=== PATIENT | male | born 1975 | race Caucasian/White ===

== ENCOUNTER 2017-01-19 19:15 | Observation (INO) | payer MEDICAID, OTHER ==
[2017-01-19] MEDS ORDERED: Sodium Chloride 0.9% 1,000 ML IV ONE ×3 (19:40→21:57)
[2017-01-19] MEDS ORDERED: Sodium Chloride 0.9% 10 ML Syringe FLUSH PRN (19:40)
[2017-01-19] MEDS ORDERED: Ketorolac 30 MG/ML SDV IVPUSH ONE (19:40)
[2017-01-19] MEDS ORDERED: HYDROmorphone 0.5 MG/0.5 ML Syringe IVPUSH ONE (19:41)
--- NOTE | 2017-01-19 20:37 | EDM.PDOC ---
ED HPI GENERAL MEDICAL PROBLEM - General Chief Complaint: Genitourinary Problem Stated Complaint: KIDNEY STONE Time Seen by Provider: 01/19/17 19:45 Source of Information: Reports: Patient History Limitations: Reports: No Limitations - History of Present Illness INITIAL COMMENTS - FREE TEXT/NARRATIVE: Derrick is a 41 year old male who presents to the ED today with c/o left flank pain, nausea and vomiting. Patient has a hx of kidney stones, knows he had 2 in his left kidney from prior. Patient ran a marathon today just prior to onset of symptoms, he knows he has not had enough water. Patient denies any fever/chills. He denies any matt hematuria. Onset: Today, Sudden left flank/groin Pain Score (Numeric/FACES): 3 - Related Data Allergies Allergy/AdvReac Type Severity Reaction Status Date / Time Penicillins Allergy Hives Verified 01/19/17 19:57 Home Meds: Home Meds Tamsulosin [Flomax] 0.4 mg PO DAILY PRN 02/21/16 [History] Acetaminophen/oxyCODONE [Percocet 325-5 MG] 2 tab PO BID PRN 01/19/17 [History] Past Medical History - Past Health History Medical/Surgical History: Denies Medical/Surgical History Genitourinary History: Reports: Renal Calculus Other Genitourinary History: present kidney stone. Musculoskeletal History: Reports: Fracture - Infectious Disease History Infectious Disease History: Reports: Chicken Pox - Past Surgical History Male Surgical History: Reports: Other (See Below) Other Male Surgeries/Procedures: undescended testicle surgery Social & Family History - Family History Family Medical History: Noncontributory - Tobacco Use Smoking Status *Q: Never Smoker Second Hand Smoke Exposure: No - Caffeine Use Caffeine Use: Reports: None - Recreational Drug Use Recreational Drug Use: No ED ROS GENERAL - Review of Systems Review Of Systems: See Below Constitutional: Reports: No Symptoms HEENT: Reports: No Symptoms Respiratory: Reports: No Symptoms Cardiovascular: Reports: No Symptoms GI/Abdominal: Reports: Nausea, Vomiting : Reports: Flank Pain Skin: Reports: No Symptoms Neurological: Reports: No Symptoms Psychiatric: Reports: No Symptoms Hematologic/Lymphatic: Reports: No Symptoms Immunologic: Reports: No Symptoms ED EXAM, RENAL/ - Physical Exam Exam: See Below Exam Limited By: No Limitations General Appearance: Alert, WD/WN, Moderate Distress. No: No Apparent Distress Throat/Mouth: Normal Inspection, Normal Oropharynx Head: Atraumatic, Normocephalic Neck: Normal Inspection, Supple, Non-Tender Respiratory/Chest: No Respiratory Distress, Lungs Clear Cardiovascular: Normal Peripheral Pulses, Bradycardia. No: Regular Rate, Rhythm GI/Abdominal: Normal Bowel Sounds, Soft, Non-Tender, Other (left groin tender) (Male) Exam: Deferred Rectal (Males) Exam: Deferred Extremities: Normal Inspection Neurological: Alert, Oriented, CN II-XII Intact Skin Exam: Warm, Dry Course - Vital Signs Text/Narrative:: Derrick is an otherwise healthy 41 year old male who presents to the ED today with c/o sudden onset of left flank pain, hx of kidney stones. Patient just finished a triathalon today prior to onset of pain. He reports feeling fatigued and dehydrated. Patient denies any fever. He does endorse nausea and vomiting. Likely patient has ureteral stone. He does have hx of pyelonephritis associated with this in the past. PIV established. Patient was initially given one liter of NS and pain medication/zofran with vast improvement in his symptoms. Blood work and UA ordered, CBC returns with significant leukocytosis of 17.4 with a left shift, HGB is stable at 13.9. CMP returns with anion gap of 14.3, elevated creatinine of 1.7 and GFR of 44. Bilirubin also elevated at 1.8. Concerns with blood work for pyelonephritis vs. early rhabdomyolysis vs. significant dehydration. CK and CK-MB were evaluated, CK returns elevated at 346, CK-MB also elevated at 7.1, troponin was added on to blood work and is also mildly elevated at 0.062. Patient denies any chest pain, EKG obtained and shows peaked T waves in leads v3-v6 and is otherwise unremarkable, reviewed with Dr. Santamaria. I feel that patient's elevated CK-MB and troponin are the direct result of muscle strain from today's triatholon given his lack of other symptoms. Pericarditis could be considered in the differential with patient's EKG findings and lab work, however, again, patient is chest pain free and has no friction rub on exam. I discussed my findings with Tub Wash Operator, Dr. Brantley from [facility] who agreed with my assessment and feels patient is stable to stay here for observation and serial troponins. Patient will continue to by hydrated overnight. CT scan renal stone obtained and shows 3mm stone in bladder, likely recently passed with UVJ diliatation and mild left sided hydronephrosis. We at 2229 continue to await a UA sample, patient still unable to void at this time, likely secondary to significant volume depletion, he is now on his 3rd liter of NS at 500 ml/hr. I discussed my findings today and work up/test results with patient and his and plan of care. They are agreeable. I discussed patient with LUIS Mojica for observation admission, she has accepted patient and will write admission orders. 2229-Patient bladder scanned by RN, 105 ml's in bladder. If UA returns positive , IV antibiotics will be initiated at that time. Patient admitted in stable condition. Last Recorded V/S: Last Vital Signs Temp 36.6 C 01/19/17 20:03 Pulse 55 L 01/19/17 20:03 Resp 20 01/19/17 20:03 BP 147/90 H 01/19/17 20:03 Pulse Ox 99 01/19/17 20:03 - Orders/Labs/Meds Orders: Active Orders 24 hr Category Date Time Status EKG Documentation Completion [RC] ASDIRECTED Care 01/19/17 21:30 Active Peripheral IV Care [RC] . DIRECTED Care 01/19/17 19:40 Active Abdomen Pelvis wo Cont [CT] Stat Exams 01/19/17 19:41 Taken URINALYSIS W/MICROSCOPIC [UA W/MICROSCOPIC] [URIN] Stat Lab 01/19/17 21:16 Uncollected Sodium Chloride 0.9% [Normal Saline] 1,000 ml Med 01/19/17 21:57 Active IV .BOLUS Sodium Chloride 0.9% [Saline Flush] Med 01/19/17 19:40 Active 10 ml FLUSH ASDIRECTED PRN Peripheral IV Insertion Adult [OM.PC] Routine Oth 01/19/17 19:40 Ordered EKG 12 Lead [EK] Stat Ther 01/19/17 21:30 Ordered Medication Orders Sodium Chloride (Normal Saline) 1,000 mls @ 500 mls/hr IV .BOLUS ONE Stop: 01/19/17 23:56 Last Admin: 01/19/17 22:03 Dose: 500 mls/hr Sodium Chloride (Saline Flush) 10 ml FLUSH ASDIRECTED PRN PRN Reason: Keep Vein Open Last Admin: 01/19/17 19:54 Dose: 10 ml Labs: Laboratory Tests 01/19/17 01/19/17 01/19/17 Range/Units 19:49 19:49 20:27 WBC 17.4 H (4.5-11.0) K/uL RBC 4.40 (4.30-5.90) M/uL Hgb 13.9 (12.0-15.0) g/dL Hct 39.8 L (40.0-54.0) % MCV 91 (80-98) fL MCH 32 H (27-31) pg MCHC 35 (32-36) % Plt Count 226 (150-400) K/uL Neut % (Auto) 91 H (36-66) % Lymph % (Auto) 3 L (24-44) % [place] % (Auto) 6 (2-6) % Eos % (Auto) 0 L (2-4) % Baso % (Auto) 0 (0-1) % Sodium 137 L (140-148) mmol/L Potassium 4.3 (3.6-5.2) mmol/L Chloride 100 (100-108) mmol/L Carbon Dioxide 27 (21-32) mmol/L Anion Gap 14.3 H (5.0-14.0) mmol/L BUN 18 (7-18) mg/dL Creatinine 1.7 H (0.8-1.3) mg/dL Est Cr Clr Drug Dosing 56.74 mL/min Estimated GFR (MDRD) 44 L (>60) Glucose 121 H (74-106) mg/dL Calcium 9.0 (8.5-10.1) mg/dL Total Bilirubin 1.8 H (0.2-1.0) mg/dL AST 38 H (15-37) U/L ALT 32 (12-78) U/L Alkaline Phosphatase 59 (46-116) U/L Creatine Kinase 346 H (39-308) U/L CK-MB (CK-2) 7.1 H* (0-3.6) mg/mL Troponin I (0.000-0.056) ng/mL Total Protein 7.9 (6.4-8.2) g/dL Albumin 4.2 (3.4-5.0) g/dL Globulin 3.7 H (2.3-3.5) g/dL Albumin/Globulin Ratio 1.1 L (1.2-2.2) 01/19/17 Range/Units 20:59 WBC (4.5-11.0) K/uL RBC (4.30-5.90) M/uL Hgb (12.0-15.0) g/dL Hct (40.0-54.0) % MCV (80-98) fL MCH (27-31) pg MCHC (32-36) % Plt Count (150-400) K/uL Neut % (Auto) (36-66) % Lymph % (Auto) (24-44) % [place] % (Auto) (2-6) % Eos % (Auto) (2-4) % Baso % (Auto) (0-1) % Sodium (140-148) mmol/L Potassium (3.6-5.2) mmol/L Chloride (100-108) mmol/L Carbon Dioxide (21-32) mmol/L Anion Gap (5.0-14.0) mmol/L BUN (7-18) mg/dL Creatinine (0.8-1.3) mg/dL Est Cr Clr Drug Dosing mL/min Estimated GFR (MDRD) (>60) Glucose (74-106) mg/dL Calcium (8.5-10.1) mg/dL Total Bilirubin (0.2-1.0) mg/dL AST (15-37) U/L ALT (12-78) U/L Alkaline Phosphatase (46-116) U/L Creatine Kinase (39-308) U/L CK-MB (CK-2) (0-3.6) mg/mL Troponin I 0.062 H* (0.000-0.056) ng/mL Total Protein (6.4-8.2) g/dL Albumin (3.4-5.0) g/dL Globulin (2.3-3.5) g/dL Albumin/Globulin Ratio (1.2-2.2) Meds: Medications Generic Name Dose Route Start Last Admin Trade Name Freq PRN Reason Stop Dose Admin Sodium Chloride 1,000 mls @ 500 mls/hr 01/19/17 21:57 01/19/17 22:03 Normal Saline IV 07/08/17 23:56 500 mls/hr .BOLUS ONE Administration Sodium Chloride 10 ml 01/19/17 19:40 01/19/17 19:54 Saline Flush FLUSH 10 ml ASDIRECTED PRN Administration Keep Vein Open Discontinued Medications Generic Name Dose Route Start Last Admin Trade Name Freq PRN Reason Stop Dose Admin Hydromorphone HCl 1 mg 01/19/17 19:41 01/19/17 19:52 Dilaudid IVPUSH 01/19/17 19:42 1 mg ONETIME ONE Administration Sodium Chloride 1,000 mls @ 999 mls/hr 01/19/17 19:40 01/19/17 19:50 Normal Saline IV 01/19/17 20:40 999 mls/hr .BOLUS ONE Administration Sodium Chloride 1,000 mls @ 999 mls/hr 01/19/17 20:36 01/19/17 20:44 Normal Saline IV 01/19/17 21:36 999 mls/hr .BOLUS ONE Administration Ketorolac Tromethamine 30 mg 01/19/17 19:40 01/19/17 19:55 Toradol IVPUSH 01/19/17 19:41 30 mg ONETIME ONE Administration Departure - Departure Time of Disposition: 23:00 Disposition: Admitted As Inpatient 64 Condition: Good Clinical Impression: Elevated troponin I level, Elevated CK-MB level, Left ureteral stone, Dehydration, severe - Discharge Information Forms: ED Department Discharge - My Orders Last 24 Hours: My Active Orders 01/19/17 19:40 Peripheral IV Care [RC] . DIRECTED Sodium Chloride 0.9% [Saline Flush] 10 ml FLUSH ASDIRECTED PRN Peripheral IV Insertion Adult [OM.PC] Routine 01/19/17 19:41 Abdomen Pelvis wo Cont [CT] Stat 01/19/17 21:16 URINALYSIS W/MICROSCOPIC [UA W/MICROSCOPIC] [URIN] Stat 01/19/17 21:30 EKG Documentation Completion [RC] ASDIRECTED EKG 12 Lead [EK] Stat 01/19/17 21:57 Sodium Chloride 0.9% [Normal Saline] 1,000 ml IV .BOLUS - Assessment/Plan Last 24 Hours: My Active Orders 01/19/17 19:40 Peripheral IV Care [RC] . DIRECTED Sodium Chloride 0.9% [Saline Flush] 10 ml FLUSH ASDIRECTED PRN Peripheral IV Insertion Adult [OM.PC] Routine 01/19/17 19:41 Abdomen Pelvis wo Cont [CT] Stat 01/19/17 21:16 URINALYSIS W/MICROSCOPIC [UA W/MICROSCOPIC] [URIN] Stat 01/19/17 21:30 EKG Documentation Completion [RC] ASDIRECTED EKG 12 Lead [EK] Stat 01/19/17 21:57 Sodium Chloride 0.9% [Normal Saline] 1,000 ml IV .BOLUS
[2017-01-20] MEDS ORDERED: Morphine 2 MG/ML Syringe IVPUSH PRN (00:27)
[2017-01-20] MEDS ORDERED: Pantoprazole 40 MG Vial IV ONE (00:27)
[2017-01-20] MEDS ORDERED: Ibuprofen 600 MG Tab PO PRN (00:27)
[2017-01-20] MEDS ORDERED: Acetaminophen 325 MG Tab PO PRN (00:27)
[2017-01-20] MEDS ORDERED: Ondansetron 4 MG Tab.DIS PO PRN (00:27)
[2017-01-20] MEDS ORDERED: LORazepam 2 MG/ML MDV IV PRN (00:27)
[2017-01-20] MEDS ORDERED: Albuterol/Ipratropium 3.0-0.5 MG/3 ML Neb Soln NEB PRN (00:27)
[2017-01-20] MEDS ORDERED: Tamsulosin 0.4 MG Cap.ER PO PRN (00:27)
[2017-01-20] MEDS ORDERED: Docusate Sodium 100 MG Cap PO PRN (00:27)
[2017-01-20] MEDS ORDERED: Albuterol 0.083% 2.5 MG/3 ML Neb Soln NEB PRN (00:27)
[2017-01-20] MEDS ORDERED: oxyCODONE 5 MG Tab PO PRN (00:27)
[2017-01-20] MEDS ORDERED: Bisacodyl 5 MG Tab PO PRN (00:27)
[2017-01-20] MEDS ORDERED: Enoxaparin 30 MG/0.3 ML Syringe SUBCUT SCH ×2 (00:27→18:00)
--- NOTE | 2017-01-20 00:38 | PCM.HP ---
H&P History of Present Illness - General Date of Service: 01/19/17 Admit Problem/Dx: Admission Diagnosis/Problem Admission Diagnosis/Problem Dehydration Source of Information: Patient, Family () History Limitations: Reports: No Limitations - History of Present Illness Initial Comments - Free Text/Narative: ED HPI GENERAL MEDICAL PROBLEM - General Chief Complaint: Genitourinary Problem Stated Complaint: KIDNEY STONE Time Seen by Provider: 01/19/17 19:45 Source of Information: Reports: Patient History Limitations: Reports: No Limitations - History of Present Illness INITIAL COMMENTS - FREE TEXT/NARRATIVE: Derrick is a 41 year old male who presents to the ED today with c/o left flank pain, nausea and vomiting. Patient has a hx of kidney stones, knows he had 2 in his left kidney from prior. Patient ran a marathon today just prior to onset of symptoms, he knows he has not had enough water. Patient denies any fever/chills. He denies any matt hematuria. - Vital Signs Text/Narrative:: Derrick is an otherwise healthy 41 year old male who presents to the ED today with c/o sudden onset of left flank pain, hx of kidney stones. Patient just finished a triathalon today prior to onset of pain. He reports feeling fatigued and dehydrated. Patient denies any fever. He does endorse nausea and vomiting. Likely patient has ureteral stone. He does have hx of pyelonephritis associated with this in the past. PIV established. Patient was initially given one liter of NS and pain medication/zofran with vast improvement in his symptoms. Blood work and UA ordered, CBC returns with significant leukocytosis of 17.4 with a left shift, HGB is stable at 13.9. CMP returns with anion gap of 14.3, elevated creatinine of 1.7 and GFR of 44. Bilirubin also elevated at 1.8. Concerns with blood work for pyelonephritis vs. early rhabdomyolysis vs. significant dehydration. CK and CK-MB were evaluated, CK returns elevated at 346, CK-MB also elevated at 7.1, troponin was added on to blood work and is also mildly elevated at 0.062. Patient denies any chest pain, EKG obtained and shows peaked T waves in leads v3-v6 and is otherwise unremarkable, reviewed with Dr. Santamaria. I feel that patient's elevated CK-MB and troponin are the direct result of muscle strain from today's triatholon given his lack of other symptoms. Pericarditis could be considered in the differential with patient's EKG findings and lab work, however, again, patient is chest pain free and has no friction rub on exam. I discussed my findings with Environmental Field Office Manager, Dr. Brantley from [facility] who agreed with my assessment and feels patient is stable to stay here for observation and serial troponins. Patient will continue to be hydrated overnight. CT scan renal stone obtained and shows 3mm stone in bladder, likely recently passed with UVJ diliatation and mild left sided hydronephrosis. We at 2230 continue to await a UA sample, patient still unable to void at this time, likely secondary to significant volume depletion, he is now on his 3rd liter of NS at 500 ml/hr. I discussed my findings today and work up/test results with patient and his and plan of care. They are agreeable. I discussed patient with LUIS Mojica for observation admission, she has accepted patient and will write admission orders. 2229-Patient bladder scanned by RN, 105 ml's in bladder. If UA returns positive , IV antibiotics will be initiated at that time. Patient admitted in stable condition. Onset of Symptoms: Reports: Today Duration of Symptoms: Reports: Constant Location: Reports: Generalized Quality: Reports: Other (body aches, left flank pain) Improves with: Reports: Medication Worsens with: Reports: None Context: Reports: Exertion Associated Symptoms: Reports: Fever/Chills, Loss of Appetite, Malaise, Nausea/ Vomiting, Weakness left flank/groin Pain Score (Numeric/FACES): 3 - Related Data Allergies/Adverse Reactions: Allergies Allergy/AdvReac Type Severity Reaction Status Date / Time Penicillins Allergy Hives Verified 01/19/17 19:57 Home Medications: Home Meds Tamsulosin [Flomax] 0.4 mg PO DAILY PRN 02/21/16 [History] Acetaminophen/oxyCODONE [Percocet 325-5 MG] 2 tab PO BID PRN 01/19/17 [History] Past Medical History - Past Health History Medical/Surgical History: Denies Medical/Surgical History Genitourinary History: Reports: Renal Calculus Other Genitourinary History: present kidney stone. Musculoskeletal History: Reports: Fracture - Infectious Disease History Infectious Disease History: Reports: Chicken Pox - Past Surgical History Male Surgical History: Reports: Other (See Below) Other Male Surgeries/Procedures: undescended testicle surgery Social & Family History - Family History Family Medical History: Noncontributory - Tobacco Use Smoking Status *Q: Never Smoker Second Hand Smoke Exposure: No - Caffeine Use Caffeine Use: Reports: None - Recreational Drug Use Recreational Drug Use: No - Living Situation & Occupation Living situation: Reports: Occupation: Employed H&P Review of Systems - Review of Systems: Review Of Systems: See Below General: Reports: Malaise, Weakness HEENT: Reports: No Symptoms Pulmonary: Reports: No Symptoms Cardiovascular: Reports: No Symptoms Gastrointestinal: Reports: Abdominal Pain (left lateral and low pelvis, no rebound tenderness. ), Nausea Genitourinary: Reports: Retention Musculoskeletal: Reports: Muscle Pain, Muscle Stiffness Skin: Reports: No Symptoms Psychiatric: Reports: Anxiety Neurological: Reports: No Symptoms Hematologic/Lymphatic: Reports: No Symptoms Immunologic: Reports: No Symptoms Exam - Exam Exam: See Below - Vital Signs Vital Signs: Last Vital Signs Temp 36.6 C 01/19/17 20:03 Pulse 54 L 01/19/17 22:47 Resp 16 01/19/17 22:47 BP 138/85 01/19/17 22:47 Pulse Ox 96 01/19/17 22:47 Weight: 71.6 kg - Exam General: Alert, Oriented, 4 HEENT: PERRLA, Hearing Intact, Mucosa Moist & [place], Nares Patent, Normal Nasal Septum, Posterior Pharynx Clear, Conjunctiva Clear, EOMI, EACs Clear, TMs Clear Neck: Supple, Trachea Midline, 2 Lungs: Clear to Auscultation, Normal Respiratory Effort Cardiovascular: Regular Rate, Regular Rhythm Abdomen: Normal Bowel Sounds, Soft, Pelvis Stable, Tenderness (mild tenderness noted to lateral and lower pelvis with palpation.) (Male) Exam: Deferred Rectal (Males) Exam: Deferred Back Exam: Normal Inspection, Full Range of Motion, CVA Tenderness (L) Extremities: 3, Normal Inspection, 10 Skin: Warm, Dry, Intact Neurological: Cranial Nerves Intact, Reflexes Equal Bilateral Neuro Extensive - Mental Status: Alert Neuro Extensive - Motor, Sensory, Reflexes: CN II-XII Intact, Normal Gait, Normal Reflexes Psychiatric: Alert, Normal Affect, Normal Mood - Patient Data Result Diagrams: 01/19/17 19:49 01/19/17 19:49 *Q Meaningful Use (ADM) - VTE *Q VTE Criteria *Q: - Stroke *Q Stroke Criteria *Q: - AMI *Q AMI Criteria *Q: - Problem List (1) Dehydration, severe SNOMED Code(s): 515381601 ICD Code: E86.0 - DEHYDRATION Status: Acute Priority: High Current Visit: Yes (2) Elevated CK-MB level SNOMED Code(s): 597030387 ICD Code: R74.8 - ABNORMAL LEVELS OF OTHER SERUM ENZYMES Status: Acute Priority: High Current Visit: Yes (3) Elevated troponin I level SNOMED Code(s): 674070313 ICD Code: R74.8 - ABNORMAL LEVELS OF OTHER SERUM ENZYMES Status: Acute Priority: High Current Visit: Yes (4) Left ureteral stone SNOMED Code(s): 06200479 ICD Code: N20.1 - CALCULUS OF URETER Status: Acute Priority: High Current Visit: Yes Problem List Initiated/Reviewed/Updated: Yes Orders Last 24hrs: Active Orders 24 hr Category Date Time Status Patient Status [ADT] Routine ADT 01/20/17 00:27 Active Cardiac Monitoring [RC] .As Directed Care 01/20/17 00:27 Active Intake and Output [RC] QSHIFT Care 01/20/17 00:27 Active May Shower [RC] ASDIRECTED Care 01/20/17 00:27 Active Notify Provider Vital Signs [RC] ASDIRECTED Care 01/20/17 00:27 Active Oxygen Therapy [RC] PRN Care 01/20/17 00:27 Active RT Aerosol Therapy [RC] ASDIRECTED Care 01/20/17 00:27 Active Up ad Babita [RC] ASDIRECTED Care 01/20/17 00:27 Active VTE/DVT Education [RC] Per Unit Routine Care 01/20/17 00:27 Active Vital Signs [RC] Q4H Care 01/20/17 00:27 Active Regular Diet [DIET] Diet 01/20/17 Breakfast Active CBC WITH AUTO DIFF [HEME] AM Lab 01/20/17 05:11 Ordered CK W CKMB [CHEM] AM Lab 01/20/17 05:11 Ordered COMPREHENSIVE METABOLIC PN,CMP [CHEM] AM Lab 01/20/17 05:11 Ordered TROPONIN I [CHEM] AM Lab 01/20/17 05:11 Ordered UA W/O MICROSCOPIC [URIN] AM Lab 01/20/17 05:11 Uncollected Acetaminophen [Tylenol] Med 01/20/17 00:27 Ordered 650 mg PO Q4H PRN Albuterol [Proventil Neb Soln] Med 01/20/17 00:27 Ordered 2.5 mg NEB Q4H PRN Albuterol/Ipratropium [DuoNeb 3.0-0.5 MG/3 ML] Med 01/20/17 00:27 Ordered 3 ml NEB QID PRN Bisacodyl [Dulcolax] Med 01/20/17 00:27 Ordered 5 mg PO DAILY PRN Docusate Sodium [Colace] Med 01/20/17 00:27 Ordered 100 mg PO BID PRN Enoxaparin [Lovenox] Med 01/20/17 00:27 Ordered 30 mg SUBCUT DAILY Ibuprofen [Motrin] Med 01/20/17 00:27 Ordered 600 mg PO Q6H PRN LORazepam [Ativan] Med 01/20/17 00:27 Ordered 1 mg IV Q6H PRN Morphine Med 01/20/17 00:27 Ordered 2 mg IVPUSH Q2H PRN Ondansetron [Zofran ODT] Med 01/20/17 00:27 Ordered 4 mg PO Q6H PRN Pantoprazole [ProTONIX IV] Med 01/20/17 00:27 Once 40 mg IV ONETIME ONE Sodium Chloride 0.9% [Normal Saline] 1,000 ml Med 01/20/17 00:27 Ordered IV ASDIRECTED Tamsulosin [Flomax] Med 01/20/17 00:27 Ordered 0.4 mg PO DAILY PRN Zolpidem [Ambien] Med 01/20/17 21:00 Ordered 5 mg PO BEDTIME oxyCODONE Med 01/20/17 00:27 Ordered 5 mg PO Q4H PRN Resuscitation Status Routine Resus Stat 01/19/17 23:37 Ordered Medication Orders Acetaminophen (Tylenol) 650 mg PO Q4H PRN PRN Reason: Pain (Mild 1-3)/fever Albuterol (Proventil Neb Soln) 2.5 mg NEB Q4H PRN PRN Reason: Shortness Of Breath/wheezing Albuterol/Ipratropium (Duoneb 3.0-0.5 Mg/3 Ml) 3 ml NEB QID PRN PRN Reason: Shortness Of Breath/wheezing Bisacodyl (Dulcolax) 5 mg PO DAILY PRN PRN Reason: Constipation Docusate Sodium (Colace) 100 mg PO BID PRN PRN Reason: Constipation Enoxaparin Sodium (Lovenox) 30 mg SUBCUT DAILY [facility] Sodium Chloride (Normal Saline) 1,000 mls @ 150 mls/hr IV ASDIRECTED [facility] Last Admin: 01/20/17 00:00 Dose: 150 mls/hr Ibuprofen (Motrin) 600 mg PO Q6H PRN PRN Reason: Pain/Fever Lorazepam (Ativan) 1 mg IV Q6H PRN PRN Reason: Nausea/Vomiting Morphine Sulfate (Morphine) 2 mg IVPUSH Q2H PRN PRN Reason: Pain (severe 7-10) Ondansetron HCl (Zofran Odt) 4 mg PO Q6H PRN PRN Reason: Nausea able to take PO Oxycodone HCl (Oxycodone) 5 mg PO Q4H PRN PRN Reason: Pain (moderate 4-6) Pantoprazole Sodium (Protonix Iv) 40 mg IV ONETIME ONE Stop: 01/20/17 00:28 Sodium Chloride (Saline Flush) 10 ml FLUSH ASDIRECTED PRN PRN Reason: Keep Vein Open Last Admin: 01/19/17 19:54 Dose: 10 ml Tamsulosin HCl (Flomax) 0.4 mg PO DAILY PRN PRN Reason: kidney stones Zolpidem Tartrate (Ambien) 5 mg PO BEDTIME [facility] Assessment/Plan Comment:: ASSESSMENT / PLAN -This is a 41 year old male present to ER with complaints of flank pain, he decided to come to the hospital/ER for further care and treatment. Plan -Admit to [address] [place] [address] for further monitoring -Dehydration severe -left ureteral stone, -elevated tropoin 1 and CK-MB; will recheck in am -Troponin cardiac enzyme IN AM -Telemetry -Oxygen per nasal cannula prn -IV fluids for rehydration NS at 150 mL per hour -Advise to notify nurses of any chest pain or other symptoms -And a.m. labs: CBC, CMP, TROPONIN, CK Maintenance issues -Orders home meds: -Nutrition: Regular diet -Hernandez catheter not indicated at this time -DVT: Lovenox 30 units subcut -GI Prophalaxis; Protonix 40mg daily CODE STATUS: Full Admission status: Admit to Observation -I expect this patient to stay less than 24 hours, not to exceed 96 hours for evaluation and management of this problem. Disposition; other Primary care provider: Dr. Hernandez
[2017-01-20] MEDS: Sodium Chloride 0.9% 1,000 ML IV SCH ×3 (00:41→06:30)
[2017-01-20] MEDS ORDERED: Zolpidem 5 MG Tab PO STA (00:50)
[2017-01-20 07:37] VITALS: BP 127/77
--- NOTE | 2017-01-20 10:18 | PCM.DCSUM1 ---
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 - Discharge Data Discharge Date: 01/20/17 Discharge Disposition: Home, Self-Care 01 Condition: Fair - Discharge Diagnosis/Problem(s) (1) Acute kidney injury SNOMED Code(s): 27050301 ICD Code: N17.9 - ACUTE KIDNEY FAILURE, UNSPECIFIED Status: Acute (2) Elevated troponin I level SNOMED Code(s): 685325699 ICD Code: R74.8 - ABNORMAL LEVELS OF OTHER SERUM ENZYMES Status: Acute Priority: High (3) Left ureteral stone SNOMED Code(s): 44307557 ICD Code: N20.1 - CALCULUS OF URETER Status: Acute Priority: High (4) Dehydration, severe SNOMED Code(s): 633982059 ICD Code: E86.0 - DEHYDRATION Status: Acute Priority: High - Patient Summary/Data Hospital Course: Derrick presented to the ER with left flank pain and was found to have a 3 mm stone in his bladder and evidence for acute kidney injury and a mildly elevated troponin. It was noted that he had participated in a triathlon earlier in the day and had ran a marathon earlier the week as well as a 5K run. He was admitted to the hospital for IV fluids and serial troponin levels. There were no abnormalities on telemetry overnight. He was able to pass the stone from his bladder through the urethra the morning after admission. His troponin level the morning after admission is normal. He feels like his usual self. I suspect that the mild troponin elevation was a result of his vigorous physical exercise earlier in the day. I do not believe that represented any sort of a cardiac event as he was able to complete a marathon without any difficulty. I suspect that he may have been a little bit dehydrated. His creatinine level has not improved as much as I would've expected but I would expect that with ongoing hydration and little bit of time this should normalize. He may have a component of obstructive uropathy if the stone was temporarily obstructing the urinary tract. He feels well and his vital signs have been stable. I believe he is safe for outpatient management. He reports that he will be taking the week off from vigorous exercise. He should follow-up if symptoms return. - Patient Instructions Diet: Regular Diet as Tolerated Diet, Other: drink plenty of water Activity: As Tolerated Driving: May Drive Today Showering/Bathing: May Shower Notify Provider of: Fever, Increased Pain, Nausea and/or Vomiting Other/Special Instructions: 1. You were in the hospital for management of a kidney stone as well as evaluation of a mildly elevated troponin level suggesting irritation to your skeletal lower cardiac muscle. You have passed the kidney stone. Your troponin level is normal. I suspect a very mildly elevated level was a result of your vigorous physical activity. No specific follow-up is required. 2. Please be sure to drink plenty of water, especially around times with vigorous physical activity. 3. Please seek medical attention if you develop chest pain, fever, fatigue, or have recurrence of your flank pain suggestive of another kidney stone. - Discharge Plan Home Medications: Home Meds Tamsulosin [Flomax] 0.4 mg PO DAILY PRN 02/21/16 [History] Acetaminophen/oxyCODONE [Percocet 325-5 MG] 2 tab PO BID PRN 01/19/17 [History] Patient Handouts: Kidney Stones Referrals: Luis F Ford PA-C [Primary Care Provider] - (f/u as needed after the hospital stay ) - Discharge Summary/Plan Comment DC Time >30 min.: No (25) - Patient Data Vitals - Most Recent: Last Vital Signs Temp 37.0 C 01/20/17 07:35 Pulse 52 L 01/20/17 07:35 Resp 16 01/20/17 07:35 BP 127/77 01/20/17 07:35 Pulse Ox 96 01/20/17 07:35 Weight - Most Recent: 71.6 kg I&O - Last 24 hours: Intake & Output 01/19/17 01/20/17 01/20/17 22:59 06:59 14:59 Intake Total 960 Output Total 300 800 Balance -300 160 Lab Results - Last 24 hrs: Laboratory Results - last 24 hr 01/20/17 01/20/17 01/20/17 Range/Units 01:51 05:30 05:30 WBC 13.9 H (4.5-11.0) K/uL RBC 4.05 L (4.30-5.90) M/uL Hgb 12.7 (12.0-15.0) g/dL Hct 37.3 L (40.0-54.0) % MCV 92 (80-98) fL MCH 31 (27-31) pg MCHC 34 (32-36) % Plt Count 174 (150-400) K/uL Neut % (Auto) 80 H (36-66) % Lymph % (Auto) 8 L (24-44) % Lucas % (Auto) 12 H (2-6) % Eos % (Auto) 0 L (2-4) % Baso % (Auto) 0 (0-1) % Sodium 137 L (140-148) mmol/L Potassium 4.2 (3.6-5.2) mmol/L Chloride 105 (100-108) mmol/L Carbon Dioxide 24 (21-32) mmol/L Anion Gap 12.2 (5.0-14.0) mmol/L BUN 18 (7-18) mg/dL Creatinine 1.8 H (0.8-1.3) mg/dL Est Cr Clr Drug Dosing 53.59 mL/min Estimated GFR (MDRD) 41 L (>60) Glucose 102 (74-106) mg/dL Calcium 7.9 L (8.5-10.1) mg/dL Total Bilirubin 2.4 H (0.2-1.0) mg/dL AST 37 (15-37) U/L ALT 32 (12-78) U/L Alkaline Phosphatase 49 (46-116) U/L Creatine Kinase 266 (39-308) U/L CK-MB (CK-2) 5.1 H* (0-3.6) mg/mL Troponin I 0.027 (0.000-0.056) ng/mL Total Protein 6.3 L (6.4-8.2) g/dL Albumin 3.2 L (3.4-5.0) g/dL Globulin 3.1 (2.3-3.5) g/dL Albumin/Globulin Ratio 1.0 L (1.2-2.2) Urine Color Yellow Urine Appearance Clear Urine pH 6.0 (4.5-8.0) Ur Specific House 1.020 (1.008-1.030) Urine Protein Trace (NEGATIVE) mg/dL Urine Glucose (UA) Normal (NEGATIVE) mg/dL Urine Ketones 50 H (NEGATIVE) mg/dL Urine Occult Blood Negative (NEGATIVE) Urine Nitrite Negative (NEGAITVE) Urine Bilirubin Negative (NEGATIVE) Urine Urobilinogen Normal (NORMAL) mg/dL Ur Leukocyte Esterase Negative (NEGATIVE) Med Orders - Current: Current Medications Acetaminophen (Tylenol) 650 mg PO Q4H PRN PRN Reason: Pain (Mild 1-3)/fever Albuterol (Proventil Neb Soln) 2.5 mg NEB Q4H PRN PRN Reason: Shortness Of Breath/wheezing Albuterol/Ipratropium (Duoneb 3.0-0.5 Mg/3 Ml) 3 ml NEB QID PRN PRN Reason: Shortness Of Breath/wheezing Bisacodyl (Dulcolax) 5 mg PO DAILY PRN PRN Reason: Constipation Docusate Sodium (Colace) 100 mg PO BID PRN PRN Reason: Constipation Enoxaparin Sodium (Lovenox) 30 mg SUBCUT Q24H [facility] Sodium Chloride (Normal Saline) 1,000 mls @ 150 mls/hr IV ASDIRECTED [facility] Last Admin: 01/20/17 06:30 Dose: 150 mls/hr Ibuprofen (Motrin) 600 mg PO Q6H PRN PRN Reason: Pain/Fever Lorazepam (Ativan) 1 mg IV Q6H PRN PRN Reason: Nausea/Vomiting Morphine Sulfate (Morphine) 2 mg IVPUSH Q2H PRN PRN Reason: Pain (severe 7-10) Ondansetron HCl (Zofran Odt) 4 mg PO Q6H PRN PRN Reason: Nausea able to take PO Last Admin: 01/20/17 01:07 Dose: 4 mg Oxycodone HCl (Oxycodone) 5 mg PO Q4H PRN PRN Reason: Pain (moderate 4-6) Sodium Chloride (Saline Flush) 10 ml FLUSH ASDIRECTED PRN PRN Reason: Keep Vein Open Last Admin: 01/19/17 19:54 Dose: 10 ml Tamsulosin HCl (Flomax) 0.4 mg PO DAILY PRN PRN Reason: kidney stones Zolpidem Tartrate (Ambien) 5 mg PO BEDTIME [facility] Discontinued Medications Enoxaparin Sodium (Lovenox) 30 mg SUBCUT DAILY [facility] Last Admin: 01/20/17 01:06 Dose: 30 mg Hydromorphone HCl (Dilaudid) 1 mg IVPUSH ONETIME ONE Stop: 01/19/17 19:42 Last Admin: 01/19/17 19:52 Dose: 1 mg Sodium Chloride (Normal Saline) 1,000 mls @ 999 mls/hr IV .BOLUS ONE Stop: 01/19/17 20:40 Last Admin: 01/19/17 19:50 Dose: 999 mls/hr Sodium Chloride (Normal Saline) 1,000 mls @ 999 mls/hr IV .BOLUS ONE Stop: 01/19/17 21:36 Last Admin: 01/19/17 20:44 Dose: 999 mls/hr Sodium Chloride (Normal Saline) 1,000 mls @ 500 mls/hr IV .BOLUS ONE Stop: 01/19/17 23:56 Last Admin: 01/19/17 22:03 Dose: 500 mls/hr Ketorolac Tromethamine (Toradol) 30 mg IVPUSH ONETIME ONE Stop: 01/19/17 19:41 Last Admin: 01/19/17 19:55 Dose: 30 mg Pantoprazole Sodium (Protonix Iv) 40 mg IV ONETIME ONE Stop: 01/20/17 00:28 Last Admin: 01/20/17 01:06 Dose: 40 mg Zolpidem Tartrate (Ambien) 5 mg PO NOW STA Stop: 01/20/17 00:51 Last Admin: 01/20/17 01:13 Dose: 5 mg *Q Meaningful Use (DIS) - VTE *Q VTE Criteria *Q: - Stroke *Q Stroke Criteria *Q: - AMI *Q AMI Criteria *Q:
[2017-01-20] MEDS ORDERED: Zolpidem 5 MG Tab PO SCH (21:00)
== END 2017-01-20 11:00 | disposition home or self-care (01) ==
LOC: JP.ED 19:15 → JP.MS 23:35
PROVIDERS: ADMIT Internal Medicine; ATTEND Internal Medicine
DX: N17.9 Acute kidney failure, unspecified (principal); N20.1 Calculus of ureter; R74.8 Abnormal levels of other serum enzymes; E86.0 Dehydration; Z88.0 Allergy status to penicillin; Z79.899 Other long term (current) drug therapy; Z98.890 Other specified postprocedural states
CPT/HCPCS: 36415; 74176; 80053; 81003; 82550; 82553; 84484; 85025; 93005; 96361; 96374; 96375; 99285; A9270; C9113; J1170; J1650; J1885; J7040; J7050; 96372; 99217; G0378